=== PATIENT | female | born 1940 | race Caucasian/White ===

== ENCOUNTER 2024-01-11 08:23 | Outpatient (CLI) | payer MEDICARE ==
[2024-01-11 10:21] LABS: Hematocrit 34.4 % (34.9-44.5); Hemoglobin 10.9 g/dL (12.0-15.5); Mean Corpuscular HGB CONC 31.7 g/dL (32.0-36.0); Mean Corpuscular Hemoglobin 26.8 pg (27.0-33.0); Mean Corpuscular Volume 84.7 fL (81.6-98.3); Mean Platelet Volume 10.4 fL (7.4-10.4); Platelet Count 288 10x3/uL (150-450); RBC Distribution Width 15.4 % (11.5-14.5); Red Blood Cell (RBC) Count 4.06 10x6/uL (3.90-5.03); White Blood Cell (WBC) Count 5.7 10x3/uL (3.5-10.5)
[2024-01-11 10:46] LABS: PTT 28.4 sec (22.0-33.0); Prothrombin Time 10.9 sec (9.5-12.1)
[2024-01-11 10:55] LABS: Anion Gap 14 mmol/L (10-20); BUN (Urea Nitrogen) 17 mg/dL (9.8-20.1); Calc. Creatinine Clearance 0 mL/min (70-130); Carbon Dioxide 24 mmol/L (23-31); Chloride 109 mmol/L (98-107); Estimated GFR 75; Glucose 107 mg/dL (83-110); Potassium 3.8 mmol/L (3.5-5.1); Sodium 143 mmol/L (136-145)
== END 2024-01-11 08:24 | disposition home or self-care (01) ==
LOC: LABBT 08:23
PROVIDERS: ATTEND Urology
DX: Z01.812 Encounter for preprocedural laboratory examination (principal); N20.1 Calculus of ureter
CPT/HCPCS: 80048; 85027; 85610; 85730; 87077; 87086; 87186

== ENCOUNTER 2024-01-16 05:45 | Day surgery (SDC) | payer MEDICARE ==
[2024-01-11 08:49] VITALS: BMI 24.7
[2024-01-16] MEDS ORDERED: Vancomycin 1 GM/200 ML (FROZEN) BAG ONE (06:48)
[2024-01-16] MEDS ORDERED: Iopamidol 30 ML ONE (07:16)
[2024-01-16] MEDS ORDERED: fentaNYL PF 100 MCG/2 ML SYRINGE ONE (07:26)
[2024-01-16] MEDS ORDERED: PROPOFOL 20 ML ONE (07:26)
[2024-01-16] MEDS ORDERED: Rocuronium Bromide 10 MG/ML (10ML VIAL) ONE (07:29)
[2024-01-16] MEDS ORDERED: Dexamethasone 20 MG/5 ML VIAL ONE ×2 (07:40→07:55)
[2024-01-16] MEDS ORDERED: PHENYLEPHRINE-NS 100 MCG/ML 10 ML SYRINGE ONE (07:53)
[2024-01-16] MEDS ORDERED: Ondansetron PF 4 MG/2 ML Vial ONE (07:55)
[2024-01-16] MEDS ORDERED: diphenhydrAMINE 50 MG/ML VIAL ONE (07:55)
[2024-01-16] MEDS ORDERED: Metoclopramide HCl 10 MG (2 mL) VIAL ONE (07:55)
[2024-01-16] MEDS ORDERED: SUGAMMADEX SODIUM 200 MG/2 ML VIAL ONE (08:12)
== END 2024-01-16 10:08 | disposition home or self-care (01) ==
LOC: SDC 05:45
PROVIDERS: ATTEND Urology
PROC: 0T768DZ Dilation of Right Ureter with Intraluminal Device, Via Natural or Artificial Opening Endoscopic (ICD-10-PCS; principal; 2024-01-16)
DX: N20.1 Calculus of ureter (principal); N28.89 Other specified disorders of kidney and ureter; N39.0 Urinary tract infection, site not specified; R31.9 Hematuria, unspecified; Z79.899 Other long term (current) drug therapy; Z88.5 Allergy status to narcotic agent; Z88.2 Allergy status to sulfonamides; Z88.8 Allergy status to other drugs, medicaments and biological substances; Z88.7 Allergy status to serum and vaccine
CPT/HCPCS: 52332; 74420; C2617; J1100; J1200; J2405; J2704; J2765; J3370; Q9967